=== PATIENT | male | born 1995 | race Caucasian/White ===

== ENCOUNTER 2018-12-14 13:00 | Day surgery (SDC) | payer OTHER, SELFPAY ==
--- NOTE | 2018-12-14 13:10 | RAD_ITS ---
STUDY: X-RAY CHEST REASON FOR EXAM: Male, 23 years old. History of smoking. TECHNIQUE: PA and lateral views of the chest. COMPARISON: Comparison is made with prior study dated February 03, 2016. FINDINGS: The lungs are clear and expanded. Scattered calcified granuloma. There is no demonstrated pleural abnormality. Normal size heart. Normal mediastinum and veronica. Normal visualized pulmonary arteries. Normal visualized aortic arch and descending thoracic aorta. Normal visualized thoracic spine. Normal visualized ribs, clavicles, and shoulders. There is no demonstrated abnormality of the visualized soft tissue structures of the upper abdomen. RAD/Chest PA and Lateral IMPRESSION: Normal x-ray examination of the chest. Electronically Signed: Carroll Motta, at 13:47 EDT , Service support ,
[2018-12-14 13:49] VITALS: BP 119/55; PULSE 67; RESP 18; TEMP 37.5; O2SAT 98; BMI 27.6
[2018-12-14 13:58] LABS: Absolute Lymphocyte Count 2.27 X10^3/ul (0.83-4.51); Absolute Neutrophil Count 8.6 X10^3/uL (2.0-7.7); Basophil# 0.04 X10^3/uL; Basophil% 0.3 % (0-1); Eosinophil# 0.44 X10^3/uL; Eosinophils% 3.6 % (0-5); Hemoglobin 13.6 g/dl (13.0-16.5); Lymphocyte # 2.27 X10^3/ul (4.0); Lymphocyte % 18.5 % (19-41); Mean Corpuscular Hgb 27.6 pg (27.0-32.0); Mean Corpuscular Volume 81.1 fL (80-94); Mean Platelet Vol. 9.2 fl (6.2-12.0); Monocyte# 0.89 X10^3/uL; Monocyte% 7.3 % (0-10); Neutrophil # 8.59 X10^3/uL (2.7-7.7); Platelet Count 255 K/mm3 (150-450); RBC Distribution Width CV 14.4 % (11.6-14.6); RBC Distribution Width SD 41.6 fl (35.1-43.9); Red Blood Count 4.93 M/mm3 (4.6-6.2); White Blood Count 12.3 K/mm3 (4.4-11.0)
[2018-12-14 13:59] LABS: Anion Gap 5 (5-15); BUN 12 mg/dL (7-18); BUN/Creat Ratio 14.3 RATIO (10-20); Chloride 106 mmol/L (98-107); Creatinine, Serum 0.84 mg/dL (0.70-1.30); EST Glomerular Filtration Rate 122 mL/min (>60); Est Glom Filt Rate - Afr Amer 147 mL/min (>60); Glucose 75 mg/dL (74-106); Potassium 3.7 mmol/L (3.5-5.1); Sodium Level 137 mmol/L (136-145)
[2018-12-14 14:06] LABS: POSITIVE COUNT NO; POSITIVE DIFFERENTIAL NO; POSITIVE MORPHOLOGY NO
[2018-12-14] MEDS: Bupivacaine Mpf 0.5% 30 ML VIAL (15:00)
--- NOTE | 2018-12-14 15:23 | PCM.DC.ORTHO ---
Discharge Activity: May Not Drive, May not drive while taking narcotic pain medications., May Not Shower, Use Walker, Use Crutches Ice area for (Minutes): 20 - apply ice behind right knee 20 minutes of each hour while awake Weight Bearing Status: No weight bearing Keep extremity elevated above heart level: Operative Extremity Call your doctor if your incision/area has: Sudden Increased Bleeding, - - Beeping or failure of the wound vac, Please have [facility] page me directly Call your doctor if you observe: Fever of 101 or Higher, Shortness of breath, Chest pain, Increased palpitations (irregular heartbeat), Calf discomfort, Uncontrolled pain Cleanse incision/area with: Keep Dressing Clean & Dry Allergies/Adverse Reactions: Allergies amoxicillin trihydrate [From Augmentin] Allergy (Verified 12/14/18 13:48) Hives potassium clavulanate [From Augmentin] Allergy (Verified 12/14/18 13:48) Hives Medications to take at Discharge traMADol [Ultram (G)] 50 mg PO Q6H PRN PRN 12/13/18 Primary Care Physician: Care Physician,No Primary [Primary Care Provider] - Test Results: Test results from this visit will be discussed in further detail at your follow-up appointment, if applicable. Please Follow Up With: Whitney Flores DPM - Please call office tomorrow and schedule an appointment for next week, Wednesday 12/20 or Friday 12/22 Proposed Discharge Date: 12/14/18
--- NOTE | 2018-12-14 15:26 | DCINST_ITS ---
Discharge Activity: May Not Drive, May not drive while taking narcotic pain medications., May Not Shower, Use Walker, Use Crutches Ice area for (Minutes): 20 - apply ice behind right knee 20 minutes of each hour while awake Weight Bearing Status: No weight bearing Keep extremity elevated above heart level: Operative Extremity Call your doctor if your incision/area has: Sudden Increased Bleeding, - - Beeping or failure of the wound vac, Please have [facility] page me directly Call your doctor if you observe: Fever of 101 or Higher, Shortness of breath, Chest pain, Increased palpitations (irregular heartbeat), Calf discomfort, Uncontrolled pain Cleanse incision/area with: Keep Dressing Clean & Dry Allergies/Adverse Reactions: Allergies amoxicillin trihydrate [From Augmentin] Allergy (Verified 12/14/18 13:48) Hives potassium clavulanate [From Augmentin] Allergy (Verified 12/14/18 13:48) Hives Medications to take at Discharge traMADol [Ultram (G)] 50 mg PO Q6H PRN PRN 12/13/18 Primary Care Physician: Care Physician,No Primary [Primary Care Provider] - Test Results: Test results from this visit will be discussed in further detail at your follow- up appointment, if applicable. Please Follow Up With: Whitney Flores DPM - Please call office tomorrow and schedule an appointment for next week, Wednesday 12/20 or Friday 12/22 Proposed Discharge Date: 12/14/18
[2018-12-14 15:30] VITALS: BP 102/71; BP 119/55; PULSE 80; RESP 14; TEMP 36.4; O2SAT 94
[2018-12-14 15:45] VITALS: BP 119/55; BP 120/64; PULSE 87; RESP 16; O2SAT 94
[2018-12-14 16:00] VITALS: BP 119/55; BP 119/67; PULSE 85; RESP 16; TEMP 36.5; O2SAT 94
[2018-12-14 17:05] VITALS: BP 119/55
--- NOTE | 2018-12-16 21:11 | PCM.OPRPT ---
Report of Operation Date of Procedure: 12/14/18 Pre-Operative Diagnosis: Right Achilles laceration Post-Operative Diagnosis: same Surgery/Procedure Performed:: Right exploration of a penetrating wound of the extremity, excisional debridement and irrigation, application of NPWT, application of a multi-layer compressive dressing and short leg splint Type of Anesthesia:: General/Supplemental Estimated Blood Loss (mL): minimal Description of Procedure: Indications: Pt is a 23 yo M who sustained an open Achilles partial rupture while at work on 12/13/2018. He was seen at an outside office on [place] and then followed up in my clinic later that same day. He was washed out with normal sterile saline, packed with DSD and placed into a well padded posterior splint in gravity equinus. He was started on po antibiotics and his tetanus had been updated. We discussed at length the negative impact of smoking on his healing and the increased risk of post operative complications related to smoking. All risks, complications, and alternatives were discussed with the patient, and the patient signed an informed consent. No guarantees were given. Procedure: On 12/14/2018 , Paulo Edge was visually and verbally identified in the preoperative holding area. The consent form was again reviewed with the patient, as were all risks, complications, and alternatives and the patient wished to proceed with the proposed surgery. The right ankle was marked as the correct operative extremity. The patient was brought to the operating room. A pneumatic thigh tourniquet was placed on the RLE. After intubation by anesthesia he was placed on the operating room table in the prone position. The posterior splint was then removed. At this time the right lower extremity was prepped and draped in the usual sterile fashion. The tourniquet was not inflated throughout the case. At this time attention was directed to the posterior heel where a 4 cm laceration was noted in a transverse direction with exposed Achilles. It was approximately 0.5 cm deep. Gross debris was excised. Hemostasis was obtained. The laceration was then flushed via pulse lavage with 3L of normal sterile saline. It was noted that the Achilles was approximately 50-60% intact from medial to lateral and the laceration was not full thickness. No purulence was noted. Wound cultures where taken post lavage. 10 cc of 0.5% marcaine plain was injected a the surgical site. Adaptic was placed over the exposed Achilles tendon and then a NPWT system was applied at 125 mmHg continuous. It was bridged to his lateral ankle with appropriate skin preparation. A good seal was noted, dry sterile dressings were then applied with a padded anterior ankle and a multilayer compressive dressing with the NPWT tubing outside of layers. A well padded posterior splint in gravity equinus was then applied. Pending wound cultures we will likely return to the operating room for an additional washout and likely delayed primary closure of the laceration without direct repair of the Achilles as it is a partial rupture and was an open injury. I will discuss this further with the patient at his first post operative appointment. The patient tolerated the procedure and anesthesia well. The patient was then transported to the postanesthesia care unit by a member of the anesthesia team and myself with all vital signs stable and neurovascular status of the right lower extremity equal to pre-operative levels. At the end of the case all sponge, needle and instrument counts were found to be correct. Grafts/Implants Used: Vac Via NPWT - Complications none - Admit VTE Documentation VTE Present on Admission: No VTE Mechan Device Prophylaxis: SCD's, Knee High TIARA Hose VTE Pharm Prophylaxis ordered?: Yes
== END 2018-12-14 16:55 | disposition home or self-care (01) ==
LOC: SDC 13:09 → AC 13:12
PROVIDERS: Referring Provider Podiatrist Foot & Ankle Surgery; Visit Provider Podiatrist Foot & Ankle Surgery
PROC: (CPT 20103; principal; 2018-12-14 14:40)
DX: S86.021A Laceration of right Achilles tendon, initial encounter (principal); V83.7XXA Person on outside of special industrial vehicle injured in nontraffic accident, initial encounter; Y93.9 Activity, unspecified; Y92.9 Unspecified place or not applicable; Y99.0 Civilian activity done for income or pay; R60.0 Localized edema; F12.90 Cannabis use, unspecified, uncomplicated; F17.210 Nicotine dependence, cigarettes, uncomplicated
CPT/HCPCS: 00400; 20103; 29515; 97607; 71046; 80048; 85025; 87070; 87075; 87102; 87205; 87206; J7120; J2405

== ENCOUNTER 2018-12-21 09:31 | Day surgery (SDC) | payer MEDICAID, SELFPAY ==
[2018-12-21 09:51] VITALS: BP 123/61; PULSE 75; RESP 16; TEMP 37.2; O2SAT 95; BMI 27.4
[2018-12-21] MEDS: Bupivacaine Mpf 0.5% 30 ML VIAL (11:30)
--- NOTE | 2018-12-21 11:48 | DCINST_ITS ---
Discharge Activity: May Not Drive, May not drive while taking narcotic pain medications., May Not Shower, Use Walker, Use Crutches Ice area for (Minutes): 20 - apply ice behind right knee 20 minutes of each hour while awake Weight Bearing Status: No weight bearing Keep extremity elevated above heart level: Operative Extremity Call your doctor if your incision/area has: Sudden Increased Bleeding Call your doctor if you observe: Fever of 101 or Higher, Shortness of breath, Dizziness, Chest pain, Increased palpitations (irregular heartbeat), Calf discomfort, Uncontrolled pain Cleanse incision/area with: Keep Dressing Clean & Dry Allergies/Adverse Reactions: Allergies amoxicillin trihydrate [From Augmentin] Allergy (Verified 12/17/18 12:12) Hives potassium clavulanate [From Augmentin] Allergy (Verified 12/17/18 12:12) Hives Medications to take at Discharge Aspirin [Aspirin EC] 325 mg PO DAILY 12/17/18 Doxycycline 100 mg PO BID 12/17/18 traMADol [Ultram] 50 mg PO Q6H PRN PRN #28 tab 12/21/18 The following prescriptions were given: traMADol [Ultram] 50 mg PO Q6H PRN PRN #28 tab PRN Reason: Pain Primary Care Physician: Care Physician,No Primary [Primary Care Provider] - Test Results: Test results from this visit will be discussed in further detail at your follow- up appointment, if applicable. Please Follow Up With: Whitney Flores DPM - Please follow up at your previously scheduled post operative appointment Proposed Discharge Date: 12/21/18
--- NOTE | 2018-12-21 11:56 | OP.PCM_ITS ---
Report of Operation Date of Procedure: 12/21/18 Surgery/Procedure Performed:: Right exploration of penetrating wound to ex tremity; R delayed primary closure Type of Anesthesia:: General/Supplemental Estimated Blood Loss (mL): minimal Description of Procedure: Indications: Pt is a 23 yo M who sustained an open Achilles laceration last week while at work. He was seen in clinic and then washed out, explored and a wound vac was applied. He returns today for wash out and closure. All risks, complications, and alternatives were discussed with the patient, and the patient signed an informed consent. No guarantees were given. Procedure: On 12/21/18, Paulo Edge was visually and verbally identified in the preoperative holding area. The consent form was again reviewed with the patient, as were all risks, complications, and alternatives and the patient wished to proceed with the proposed surgery. The right was marked as the correct operative extremity. The patient was brought to the operating room and placed on the operating room table in the normal SUPINE position. After induction by anesthesia, a surgical time out was performed and all present were in agreement. a pneumatic thigh tourniquet was then placed. At this time the right lower extremity was prepped and draped in the usual sterile fashion. The tourniquet was not inflated during the case. At this time attention was directed to the posterior ankle. The previous laceration appeared clean with no drainage. Interval granulation tissue was noted since last week's procedure with minimal exposed Achilles tendon, about 10%. A curette was used to debride the skin edges and I noted good healthy bleeding soft tissue. 1.5L of normal sterile saline was used for pulse lavage of the laceration. The laceration measured 3.3 cm x 0.3 cm x 0.3cm. 3.0 [address] was used to place several subcutaneous tissue sutures, 3.0 prolene was used for skin. 10 cc of 0.5% marcaine plain was injected at the surgical site. adaptic and dry, sterile dressings were applied along with a multilayer compressive dressing and posterior splint in gravity equinus. The patient tolerated the procedure and anesthesia well. The patient was then transported to the postanesthesia care unit by a member of the anesthesia team and myself with all vital signs stable and neurovascular status of the right lower extremity equal to pre-operative levels. At the end of the case all sponge, needle and instrument counts were found to be correct. Grafts/Implants Used: none - Complications none - Admit VTE Documentation VTE Present on Admission: No VTE Mechan Device Prophylaxis: SCD's, Knee High TIARA Hose VTE Pharm Prophylaxis ordered?: Yes
[2018-12-21 11:58] VITALS: BP 123/61; BP 125/80; PULSE 63; RESP 16; TEMP 36.6; O2SAT 96
[2018-12-21 12:15] VITALS: BP 115/77; BP 123/61; PULSE 67; RESP 16; O2SAT 99
[2018-12-21 12:30] VITALS: BP 122/75; BP 123/61; PULSE 61; RESP 16; O2SAT 98
[2018-12-21] MEDS: Ketorolac 15 MG/ML Vial IV (12:32)
[2018-12-21 12:39] VITALS: BP 118/71; BP 123/61; PULSE 61; RESP 16; TEMP 36.6; O2SAT 100
[2018-12-21 12:55] VITALS: BP 123/61
== END 2018-12-21 13:19 | disposition home or self-care (01) ==
LOC: SDC 09:32 → AC 09:33
PROVIDERS: Referring Provider Podiatrist Foot & Ankle Surgery; Visit Provider Podiatrist Foot & Ankle Surgery
PROC: (CPT 20103; principal; 2018-12-21 10:45)
DX: Z48.1 Encounter for planned postprocedural wound closure (principal); S86.021A Laceration of right Achilles tendon, initial encounter; V83.7XXA Person on outside of special industrial vehicle injured in nontraffic accident, initial encounter; Y93.9 Activity, unspecified; Y92.9 Unspecified place or not applicable; Y99.0 Civilian activity done for income or pay; R60.0 Localized edema; F17.210 Nicotine dependence, cigarettes, uncomplicated; F12.90 Cannabis use, unspecified, uncomplicated; Z79.82 Long term (current) use of aspirin
CPT/HCPCS: 00400; 20103; J7120; J2405